=== PATIENT | female | born 1995 | race Caucasian/White ===

== ENCOUNTER 2017-03-03 09:24 | Emergency (ER) | payer OTHER ==
[2017-03-03 10:00] VITALS: BP 126/66
--- NOTE | 2017-03-03 10:56 | UC ---
Throat Pain/Nasal Leobardo HPI - HPI Summary HPI Summary: Worsening cough, fatigue and dizziness for the past 5 days,works in a intermediate kitchen - History of Current Complaint Hx Obtained From: Patient Hx Last Menstrual Period: 01/04/17 ?: No Onset/Duration: Sudden Onset, Lasting Days - 5, Still Present Severity: Moderate Cough: Nonproductive Associated Signs & Symptoms: Positive: Nasal Discharge, Fever <Yazmin Sousa - Last Filed: 03/03/17 15:25> <oDnita Bal - Last Filed: 03/03/17 18:27> - History of Current Complaint Chief Complaint: UCGeneralIllness Stated Complaint: SORE THROAT ACHY CONGESTION Time Seen by Provider: 03/03/17 10:51 - Allergies/Home Medications Allergies/Adverse Reactions: Allergies Allergy/AdvReac Type Severity Reaction Status Date / Time No Known Allergies Allergy Verified 03/03/17 09:59 Home Medications: Home Medications Escitalopram Oxalate [Lexapro 20 mg] 1 tab PO DAILY 03/03/17 [History Confirmed 03/03/17] Multivit-Min W/Fe-FA [ and Iron] 1 tab PO DAILY 03/03/17 [ History Confirmed 03/03/17] PMH/Surg Hx/FS Hx/Imm Hx Previously Healthy: Yes Psychological History: Depression - Surgical History Surgical History: None - Family History Known Family History: Positive: None - Social History Occupation: Employed Full-time Lives: With Family Alcohol Use: Rare Substance Use Type: None Smoking Status (MU): Heavy Every Day Tobacco Smoker Type: Cigarettes Amount Used/How Often: 1/2 ppd <Yazmin Sousa - Last Filed: 03/03/17 15:25> Review of Systems Constitutional: Fever, Chills, Fatigue Skin: Negative Eyes: Negative ENT: Sore Throat, Ear Ache, Nasal Discharge Respiratory: Cough Cardiovascular: Negative Gastrointestinal: Negative Genitourinary: Negative Motor: Negative Neurovascular: Negative Musculoskeletal: Negative Neurological: Headache Psychological: Negative Is Patient Immunocompromised?: No All Other Systems Reviewed And Are Negative: Yes <Yazmin Sousa - Last Filed: 03/03/17 15:25> Physical Exam Triage Information Reviewed: Yes Appearance: Well-Appearing, No Pain Distress, Well-Nourished Vital Signs: Initial Vital Signs Temp 98.6 F 03/03/17 09:54 Pulse 84 03/03/17 09:54 Resp 18 03/03/17 09:54 BP 126/66 03/03/17 09:54 Pulse Ox 100 03/03/17 09:54 Vital Signs Reviewed: Yes Eye Exam: Normal Eyes: Positive: Conjunctiva Clear ENT Exam: Normal ENT: Positive: Normal ENT inspection, Hearing grossly normal, Pharynx normal, Nasal congestion, Uvula midline. Negative: Tonsillar swelling, Tonsillar exudate, Trismus, Muffled voice Dental Exam: Normal Neck exam: Normal Neck: Positive: Supple, Nontender, No Lymphadenopathy Respiratory Exam: Normal Respiratory: Positive: Chest non-tender, Lungs clear, Normal breath sounds, No respiratory distress, No accessory muscle use Cardiovascular Exam: Normal Cardiovascular: Positive: RRR, No Murmur, Pulses Normal, Brisk Capillary Refill Musculoskeletal Exam: Normal Musculoskeletal: Positive: Strength Intact, ROM Intact Neurological Exam: Normal Neurological: Positive: Alert, Muscle Tone Normal Psychological Exam: Normal Skin Exam: Normal <Yazmin Sousa - Last Filed: 03/03/17 15:25> Vital Signs: Initial Vital Signs Temp 98.6 F 03/03/17 09:54 Pulse 84 03/03/17 09:54 Resp 18 03/03/17 09:54 BP 126/66 03/03/17 09:54 Pulse Ox 100 03/03/17 09:54 <Donita Bal - Last Filed: 03/03/17 18:27> Diagnostics - Laboratory Diagnostic Studies Completed/Ordered: Influenza A (+) u preg (-) <Yazmin Sousa - Last Filed: 03/03/17 15:25> Throat Pain/Nasal Course/Dx - Course Assessment/Plan: rest increase fluids, tylenol, ibuprofen follow with pcp - Differential Dx/Diagnosis Provider Diagnoses: Influenza A <Yazmin Sousa - Last Filed: 03/03/17 15:25> Discharge <Yazmin Sousa - Last Filed: 03/03/17 15:25> <Donita Bal - Last Filed: 03/03/17 18:27> - Discharge Plan Condition: Stable Disposition: HOME Patient Education Materials: Influenza (ED) Forms: *Work Release Referrals: Tiffany Brooks MD [Primary Care Provider] - If Needed Attestation Statement User Type: Provider - I was available for consult. This patient was seen by the [facility]. The patient was not presented to, seen by, or examined by me. -Saba <Donita Bal - Last Filed: 03/03/17 18:27>
== END 2017-03-03 11:38 | disposition home or self-care (01) ==
LOC: UCCORT 09:24
DX: J09.X2 Influenza due to identified novel influenza A virus with other respiratory manifestations (principal); Z32.02 Encounter for pregnancy test, result negative; Z72.0 Tobacco use
CPT/HCPCS: 81003; 84702; 87502; 87651; 99211; G0463

== ENCOUNTER 2017-03-28 14:07 | Emergency (ER) | payer OTHER ==
[2017-03-28 14:24] VITALS: BP 115/68
--- NOTE | 2017-03-28 14:34 | UC ---
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 THE RIGHT FOOT / RIGHT 2ND TOE - History of Current Complaint Chief Complaint: UCLowerExtremity Stated Complaint: RT FOOT-TOE INJURY Time Seen by Provider: 03/28/17 14:20 Hx Obtained From: Patient Hx Last Menstrual Period: 03/27/17 Onset/Duration: Sudden Onset, Lasting Days - 1, Still Present Severity Initially: Moderate Severity Currently: Moderate Aggravating Factor(s): Standing, Ambulation Alleviating Factor(s): Rest, Elevation, Ice Able to Bear Weight: Yes Related History: Occupational Injury - Allergies/Home Medications Allergies/Adverse Reactions: Allergies Allergy/AdvReac Type Severity Reaction Status Date / Time No Known Allergies Allergy Verified 03/28/17 14:24 Home Medications: Home Medications Naproxen [Naprosyn 500 mg] 500 mg PO BID PRN 03/28/17 [History Confirmed ] PMH/Surg Hx/FS Hx/Imm Hx Previously Healthy: Yes - Surgical History Surgical History: None - Family History Known Family History: Positive: None Negative: Diabetes - Social History Alcohol Use: Occasionally Substance Use Type: None Smoking Status (MU): Heavy Every Day Tobacco Smoker Type: Cigarettes Amount Used/How Often: 1/2 ppd Review of Systems Constitutional: Negative Skin: Negative Eyes: Negative ENT: Negative Respiratory: Negative Is Patient Immunocompromised?: No All Other Systems Reviewed And Are Negative: Yes Physical Exam Triage Information Reviewed: Yes Appearance: Well-Appearing, No Pain Distress, Well-Nourished Vital Signs: Initial Vital Signs Temp 98.3 F 03/28/17 14:19 Pulse 68 03/28/17 14:19 Resp 16 03/28/17 14:19 BP 115/68 03/28/17 14:19 Pulse Ox 99 03/28/17 14:19 Vital Signs Reviewed: Yes Eyes: Positive: Conjunctiva Clear ENT: Positive: Normal ENT inspection, Hearing grossly normal, Pharynx normal Neck exam: Normal Neck: Positive: Supple, Nontender Respiratory: Positive: Chest non-tender, Lungs clear, Normal breath sounds Cardiovascular: Positive: RRR, No Murmur, Pulses Normal Musculoskeletal: Positive: Other: - RIGHT FOOT: + SWELLIN DISTAL 2ND METATARSAL , 2ND TOE , + ECCHYMOSIS , TENDER Diagnostics - Laboratory Diagnostic Studies Completed/Ordered: xray right foot: no fracture seen Lower Extremity Course/Dx - Differential Dx/Diagnosis Provider Diagnoses: CONTUSION RIGHT FOOT Discharge - Discharge Plan Condition: Stable Disposition: HOME Patient Education Materials: Foot Contusion (ED) Referrals: Tiffany Brooks MD [Primary Care Provider] - 7 Days Additional Instructions: no fracture seen on the xray
--- NOTE | 2017-03-28 14:49 | RAD ---
HISTORY: Injury to right foot COMPARISONS: May 06, 2014 VIEWS: 3, Frontal, lateral, and oblique views of the right foot FINDINGS: BONE DENSITY: Normal. BONES: There is no displaced fracture. JOINTS: There is no arthropathy. ALIGNMENT: There is no dislocation. SOFT TISSUES: Unremarkable. OTHER FINDINGS: None. IMPRESSION: NO ACUTE OSSEOUS INJURY. IF SYMPTOMS PERSIST, RECOMMEND REPEAT IMAGING.
== END 2017-03-28 15:01 | disposition home or self-care (01) ==
LOC: UCCORT 14:07
DX: S90.31XA Contusion of right foot, initial encounter (principal); W22.09XA Striking against other stationary object, initial encounter; Y93.9 Activity, unspecified; Y92.89 Other specified places as the place of occurrence of the external cause; Y99.0 Civilian activity done for income or pay; Z72.89 Other problems related to lifestyle; Z72.0 Tobacco use
CPT/HCPCS: 99211; G0463

== ENCOUNTER 2020-09-30 15:30 | Inpatient (IN) ==
[2020-09-30] MEDS ORDERED: Penicillin G Potassium IV 5,000,000 UNITS in NS 0.9% 100 ml BAG 100 ML IVPB ONE (15:56)
[2020-09-30] MEDS ORDERED: Buffered Lidocaine 1% SYRIN 1 ml INTRADERM ONE (15:56)
[2020-09-30] MEDS ORDERED: Lactated Ringers 1000 ml BAG 1,000 ML IV ONE ×2 (15:56→16:00)
[2020-09-30] MEDS ORDERED: Lactated Ringers 1000 ml BAG 1,000 ML IV SCH ×2 (16:00→22:00)
[2020-09-30] MEDS ORDERED: Penicillin G Potassium IV 3,000,000 UNITS in NS 0.9% 100 ml BAG 100 ML IVPB SCH (16:00)
[2020-09-30] MEDS ORDERED: Labetalol IV 5 MG/ML 20 ml VIAL IV PUSH ONE ×3 (16:01→18:14)
[2020-09-30] MEDS ORDERED: MAGNESIUM SULF IVPB ONE (16:04)
[2020-09-30] MEDS ORDERED: Magnesium Sulfate OB PREMIX 40 GM/1,000 ML BAG IVPB SCH (17:00)
[2020-09-30] MEDS: Magnesium Sulfate OB PREMIX 40 GM/1,000 ML BAG IVPB SCH (17:02)
[2020-09-30 17:11] LABS: ABS Eosinophils 0.1 10^3/ul (0-0.6); ABS Lymphocytes 1.6 10^3/ul (1.0-4.8); ABS Monocytes 0.8 10^3/ul (0-0.8); Eosinophil % 0.8 %; Hematocrit 31 % (35-47); Hemoglobin 10.2 g/dL (12.0-16.0); Lymphocyte % 18.9 %; Mean Corpuscular HGB Conc 33 g/dL (31-36); Mean Corpuscular Hemoglobin 30 pg (27-31); Mean Corpuscular Volume 91 fL (80-97); Mean Platelet Volume 9.8 fL (7.4-10.4); Platelet Count 193 10^3/uL (150-450); Red Blood Count 3.38 10^6 /uL (3.70-4.87); Red Cell Distribution Width 13 % (10-15); White Blood Count 8.5 10^3/uL (3.5-10.8)
[2020-09-30 17:25] LABS: ALT 10 U/L (7-52); Albumin 3.3 g/dL (3.2-5.2); Albumin/Globulin Ratio 1.3 (1-3); Alkaline Phosphatase 228 U/L (35-149); Blood Urea Nitrogen 6 mg/dL (6-24); CO2 Carbon Dioxide 23 mmol/L (22-32); Calcium 8.7 mg/dL (8.6-10.3); Chloride 106 mmol/L (101-111); EGFR African American 198.7 (>60); EGFR Non-African American 164.2 (>60); Globulin 2.5 g/dL (2-4); Glucose 68 mg/dL (70-100); Sodium 137 mmol/L (135-145); Total Protein 5.8 g/dL (6.4-8.9); Uric Acid 4.3 mg/dL (2.3-6.6)
[2020-09-30 17:26] LABS: Urine Appearance Clear; Urine Bilirubin Negative (Negative); Urine Blood Negative (Negative); Urine Color Straw; Urine Glucose Negative (Negative); Urine Ketones Negative (Negative); Urine Nitrite Negative (Negative); Urine Protein Negative (Negative); Urine Specific Gravity 1.002 (1.002-1.030); Urine Urobilinogen Negative (Negative)
[2020-09-30 17:45] LABS: Anion Gap 8 mmol/L (2-11)
[2020-09-30 17:46] LABS: Urine Benzodiazepine Screen None Detected (None Detect); Urine Cannabinoids Screen Presumptive Positive (None Detect); Urine Opiates Screen None Detected (None Detect)
[2020-09-30] MEDS ORDERED: Betamethasone 6 mg/ml 5 ml VIAL IM SCH (18:00)
[2020-09-30 18:27] LABS: Activated Partial Thrombo Time 28.4 seconds (26.0-38.0); Fibrinogen 431.2 mg/dL (110.8-404.3); INR 1.04 (0.86-1.15)
[2020-09-30 18:28] LABS: Platelet Count 184 10^3/ul (150-450)
[2020-09-30] MEDS ORDERED: hydrALAZINE 20 mg/ml 1 ML Vial IV IV SLOW PU ONE (18:53)
[2020-09-30] MEDS ORDERED: ceFOXitin 2 GM IVPREMIX 2 GM/50 ML BAG IVPB ONE (19:05)
[2020-09-30] MEDS ORDERED: hydrALAZINE 20 mg/ml 1 ML Vial IV ONE (19:06)
[2020-09-30] MEDS ORDERED: ceFOXitin 2 GM IVPREMIX 2 GM/50 ML BAG ONE (19:06)
[2020-09-30] MEDS ORDERED: EPHEDrine (Pressors) 50 MG/ML VIAL ONE (19:36)
[2020-09-30] MEDS ORDERED: Morphine PF AMP (0.5MG/ML) 5 MG/10 ML AMP ONE (19:36)
[2020-09-30 19:37] LABS: Schistocytes ABSENT
[2020-09-30] MEDS ORDERED: Oxytocin 10 UNITS/ML 1 ML VIAL ONE ×3 (19:37→20:11)
[2020-09-30] MEDS ORDERED: Naloxone 4 mg VIAL (10 ml) 2 MG in NS 0.9% 250 ml 250 ML IV PRN (20:03)
[2020-09-30] MEDS ORDERED: Naloxone 0.4 mg VIAL 0.4 mg/ml 1 ml VIAL IV PRN (20:03)
[2020-09-30] MEDS ORDERED: DiMENhydriNATE IV 50 mg/ml 1 ml VIAL IV PUSH PRN (20:03)
[2020-09-30] MEDS ORDERED: Phenylephrine 40 mcg/mL 10mL (400mcg) SYRINGE ONE (20:31)
[2020-09-30] MEDS ORDERED: Ondansetron 4 mg VIAL 2 MG/ML 2 ml VIAL ONE (20:31)
[2020-09-30] MEDS ORDERED: Acetaminophen IV 1 GM/100ML 100 ML IV PRN (21:06)
[2020-09-30] MEDS ORDERED: Glycerin ADULT 2.4 gm SUPP PR PRN (21:10)
[2020-09-30] MEDS ORDERED: Witch Hazel PAD JAR TOPICAL PRN (21:10)
[2020-09-30] MEDS ORDERED: Dibucaine 1% OINT 28.35 GM TUBE PR PRN (21:10)
[2020-09-30] MEDS: Metoclopramide 5 MG/ML VIAL (10 mg) IV PRN (22:05)
[2020-10-01] MEDS: Ondansetron 4 mg VIAL 2 MG/ML 2 ml VIAL IV PRN ×2 (02:27→08:47)
[2020-10-01 03:07] LABS: Urine Appearance Cloudy; Urine Bilirubin Negative (Negative); Urine Blood 2+ (Negative); Urine Color Yellow; Urine Glucose 1+(50 mg/dL) (Negative); Urine Ketones 1+ (Negative); Urine Nitrite Negative (Negative); Urine Protein 2+(100 mg/dL) (Negative); Urine Specific Gravity 1.014 (1.002-1.030); Urine Urobilinogen Negative (Negative)
[2020-10-01 04:34] LABS: Urine Bacteria Absent (Absent); Urine Red Blood Cell 2+(6-10/hpf) (Absent); Urine Squamous Epithelial Cell Present (Absent); Urine White Blood Cell Trace(0-5/hpf) (Absent)
[2020-10-01 05:37] LABS: ABS Lymphocytes 0.7 10^3/ul (1.0-4.8); ABS Monocytes 0.6 10^3/ul (0-0.8); ABS Neutrophils 16.6 10^3/ul (1.5-7.7); Hematocrit 32 % (35-47); Hemoglobin 10.5 g/dL (12.0-16.0); Mean Corpuscular HGB Conc 33 g/dL (31-36); Mean Corpuscular Hemoglobin 30 pg (27-31); Mean Corpuscular Volume 91 fL (80-97); Mean Platelet Volume 9.8 fL (7.4-10.4); Platelet Count 185 10^3/uL (150-450); Red Blood Count 3.51 10^6 /uL (3.70-4.87); Red Cell Distribution Width 13 % (10-15); White Blood Count 17.9 10^3/uL (3.5-10.8)
[2020-10-01] MEDS: Metoclopramide 5 MG/ML VIAL (10 mg) IV PRN (06:20)
[2020-10-01 06:43] LABS: Albumin 3.2 g/dL (3.2-5.2); Albumin/Globulin Ratio 1.2 (1-3); Calcium 7.5 mg/dL (8.6-10.3); EGFR African American 119.5 (>60); EGFR Non-African American 98.8 (>60); Globulin 2.7 g/dL (2-4); Potassium 3.8 mmol/L (3.5-5.0); Total Protein 5.9 g/dL (6.4-8.9)
[2020-10-01] MEDS: Magnesium Sulfate OB PREMIX 40 GM/1,000 ML BAG IVPB SCH (11:19)
[2020-10-01] MEDS ORDERED: hydrALAZINE 20 mg/ml 1 ML Vial IV IV SLOW PU PRN (12:17)
[2020-10-01] MEDS: Metoclopramide 5 MG/ML VIAL (10 mg) IV SLOW PU PRN ×2 (12:23→18:31)
[2020-10-03] MEDS ORDERED: Lactated Ringers 1000 ml BAG 1,000 ML IV SCH (12:00)
[2020-10-03 13:05] LABS: ABS Basophils 0.1 10^3/ul (0-0.2); ABS Eosinophils 0.1 10^3/ul (0-0.6); ABS Lymphocytes 2.2 10^3/ul (1.0-4.8); ABS Monocytes 1.3 10^3/ul (0-0.8); ABS Neutrophils 9.5 10^3/ul (1.5-7.7); Eosinophil % 0.9 %; Hematocrit 30 % (35-47); Hemoglobin 10.3 g/dL (12.0-16.0); Lymphocyte % 16.9 %; Mean Corpuscular HGB Conc 34 g/dL (31-36); Mean Corpuscular Hemoglobin 30 pg (27-31); Mean Corpuscular Volume 90 fL (80-97); Mean Platelet Volume 9.4 fL (7.4-10.4); Platelet Count 229 10^3/uL (150-450); Red Blood Count 3.38 10^6 /uL (3.70-4.87); Red Cell Distribution Width 14 % (10-15); White Blood Count 13.2 10^3/uL (3.5-10.8)
[2020-10-03 13:21] LABS: Albumin 3.4 g/dL (3.2-5.2); Albumin/Globulin Ratio 1.3 (1-3); Calcium 8.6 mg/dL (8.6-10.3); EGFR African American 125.5 (>60); EGFR Non-African American 103.7 (>60); Globulin 2.7 g/dL (2-4); Total Bilirubin 0.9 mg/dL (0.2-1.0); Total Protein 6.1 g/dL (6.4-8.9)
[2020-10-03] MEDS ORDERED: Potassium Chlor 20 meq TAB.ER PO ONE (13:41)
[2020-10-03] MEDS ORDERED: hydrALAZINE 20 mg/ml 1 ML Vial IV IV SLOW PU PRN (13:43)
[2020-10-04] MEDS ORDERED: hydrALAZINE 20 mg/ml 1 ML Vial IV IV SLOW PU PRN ×2 (07:39→10:18)
[2020-10-04 09:40] LABS: Albumin 3.6 g/dL (3.2-5.2); Albumin/Globulin Ratio 1.2 (1-3); Calcium 8.4 mg/dL (8.6-10.3); EGFR African American 134.3 (>60); Globulin 2.9 g/dL (2-4); Potassium 3.6 mmol/L (3.5-5.0); Total Bilirubin 0.9 mg/dL (0.2-1.0); Total Protein 6.5 g/dL (6.4-8.9)
[2020-10-05 16:08] VITALS: BP 159/95
== END 2020-10-05 19:00 | disposition home or self-care (01) | DRG 540 ==
LOC: MCHOBOUT 15:30 → MCHOB 16:05
PROVIDERS: ADMIT Obstetrics & Gynecology; ATTEND Obstetrics & Gynecology